=== PATIENT | male | born 1955 | race Caucasian/White ===

== ENCOUNTER → 2019-01-15 | Outpatient (CLI) | payer MEDICARE ==
--- NOTE | 2019-01-15 15:41 | REP ---
CT of the sinuses without contrast Indication: Chronic pansinusitis. Comparison: None available at the time of dictation. Technique: Axial CT of the maxillofacial bones were performed without contrast. Axial and coronal bone reformatted images were provided. Findings: Frontal sinuses: There is partial opacification of both frontal sinuses. Ethmoid air cells: There is opacification of the frontal ethmoid recesses. There is complete opacification of the posterior and anterior ethmoid air cell on the right. There is near-complete opacification of the anterior air cells on the left. There is complete opacification of the posterior ethmoid air cells on the left. Sphenoid sinuses: There is complete opacification of the right sphenoid sinus with severe thinning of the wall between the sphenoid sinus and posterior ethmoid air cells. The left sphenoid sinus is clear. The sphenoid sinus septum inserts on the left. Maxillary sinuses: Appearance of prior antrostomies. There is moderate mucosal thickening of the maxillary sinuses, greater on the right. There are incomplete septae within the maxillary sinuses inferiorly. The ostiomeatal units are occluded. There are chronic fracture deformities involving the lateral wall of the left orbit, lateral wall of the left maxillary sinus, anterior wall of the left maxillary sinus and left orbital floor. Nasal passages and septum: The nasal septum is midline. The middle turbinates are not well seen. There is polypoid mucosal thickening within the right nasal passage. Mastoid air cells: Clear bilaterally. Other: The cribriform plate and fovea ethmoidalis are intact. The imaged portion of the brain parenchyma is unremarkable. Note is made of intracranial vascular calcification. Impression: Appearance of prior antrostomies and question prior turbinectomies. Polypoid mucosal thickening of the right nasal passage. Mucosal thickening of the paranasal sinuses as described. Chronic fracture deformities involving the lateral wall of the left orbit, lateral and anterior rao of the left maxillary sinus and left orbital floor. If prior studies become available, addendum can be made for comparison. Electronically Signed by Aurea Shine MD 01/15/2019 03:32 P
== END ==
LOC: M RAD 14:41
PROVIDERS: ATTEND Otolaryngology
DX: J32.9 Chronic sinusitis, unspecified (principal)

== ENCOUNTER → 2019-02-19 | Outpatient (CLI) | payer MEDICARE ==
[~2019-02-19] MED LIST: FLON1SPR; INSUHUMDS SC; METF10004 PO; MULTTAB61 PO; TOUJ1.2I SC
[2019-02-19 19:03] LABS: BLOOD UREA NITROGEN 19 MG/DL (7-18); CALCIUM LEVEL 8.8 MG/DL (8.8-10.2); CARBON DIOXIDE LEVEL 32 MEQ/L (21-32); CHLORIDE LEVEL 104 MEQ/L (98-107); CREATININE FOR GFR 0.94 MG/DL (0.70-1.30); GLOMERULAR FILTRATION RATE > 60.0 (>49); GLUCOSE, FASTING 104 MG/DL (70-100); POTASSIUM SERUM 4.2 MEQ/L (3.5-5.1); SODIUM LEVEL 138 MEQ/L (136-145)
--- NOTE | 2019-02-20 06:35 | ECGEPIP ---
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
== END ==
LOC: M LAB 18:11
PROVIDERS: ATTEND Anesthesiology
DX: E10.9 Type 1 diabetes mellitus without complications (principal)

== ENCOUNTER 2019-02-24 10:19 | Day surgery (SDC) | payer MEDICARE ==
[~2019-02-24] VITALS: Ht 175.3 cm; Wt 72.6 kg
[~2019-02-24 10:19] MED LIST changes: +ACETAMINOPHEN 500 MG TAB As Ordered ONE; +LIDOCAINE 1% MDV 20ML VIAL SQ PRN; -MULTTAB61 PO
[2019-02-24] MEDS ORDERED: MULTTAB61 PO (10:51)
[2019-02-24] MEDS ORDERED: LR 1,000 ML IV ONE (11:45)
[2019-02-24] MEDS ORDERED: LIDOCAINE W/EPINEPHRINE 1% 20ML VIAL As Ordered ONE (12:48)
[2019-02-24] MEDS ORDERED: EPINEPHrine 1MG/ML INJ 30ML MD-VIAL As Ordered ONE (12:48)
[2019-02-24] MEDS ORDERED: METHYLENE BLUE 0.5% (5MG/ML) 10 ML AMP (PROVAYBLUE)(Q9968 PER 1MG) As Ordered ONE (12:48)
[2019-02-24] MEDS ORDERED: PROPOFOL 200 MG/20 ML VIAL As Ordered ONE (13:44)
[2019-02-24] MEDS ORDERED: ONDANSETRON 4MG/2ML VIAL (J2405) As Ordered ONE (13:44)
[2019-02-24] MEDS ORDERED: LIDOCAINE 2% INJ 100 MG/5 ML SDV (FOR ANES.) As Ordered ONE (13:44)
[2019-02-24] MEDS ORDERED: ROCURONIUM BROMIDE 50 MG/5 ML VIAL As Ordered ONE (13:44)
[2019-02-24] MEDS ORDERED: fentaNYL 250 MCG/5 ML INJECTION (J3010) As Ordered ONE (13:44)
[2019-02-24] MEDS ORDERED: MIDAZOLAM INJ 2 MG/2 ML VIAL (J2250) As Ordered ONE (13:44)
[2019-02-24] MEDS ORDERED: dexameTHASONE 4 MG/ML 1ML VIAL (J1100) As Ordered ONE (13:44)
[2019-02-24] MEDS ORDERED: SUGAMMADEX SODIUM 500 MG/5 ML VIAL (BRIDION) As Ordered ONE (13:58)
[2019-02-24] MEDS ORDERED: ESMOLOL INJ 100MG/10ML VIAL As Ordered ONE (14:01)
[2019-02-24] MEDS ORDERED: ACETAMINOPHEN 1000MG 100ML IV BTL (OFIRMEV) (J0131 PER 10MG) As Ordered ONE (14:28)
[2019-02-24] MEDS ORDERED: PERCOCET 5MG/325MG TAB As Ordered ONE (15:36)
[2019-02-24] MEDS ORDERED: PERCOCET 5MG/325MG TAB PO PRN (15:45)
[2019-02-24] MEDS ORDERED: ONDANSETRON 4MG/2ML VIAL (J2405) IV PRN (15:45)
[2019-02-24] MEDS ORDERED: LR 1,000 ML IV SCH ×2 (15:45→16:00)
[2019-02-24] MEDS ORDERED: fentaNYL 100 MCG/2 ML INJECTION (J3010) IV PRN (15:45)
[2019-02-24] MEDS ORDERED: LABETALOL HCL 100 MG/20 ML VIAL As Ordered ONE (15:46)
[2019-02-24] MEDS ORDERED: hydrALAZINE INJ 20 MG/ML VIAL As Ordered ONE (15:57)
[2019-02-24] MEDS ORDERED: ACETAMINOPH W/CODEINE #3 TAB UD PO PRN (16:00)
[2019-02-24] MEDS: hydrALAZINE INJ 20 MG/ML VIAL IV SCH ×2 (16:00→16:05)
[2019-02-24] MEDS ORDERED: LABETALOL HCL 100 MG/20 ML VIAL IV SCH (16:00)
[2019-02-24 16:05] VITALS: BP 189/76
[2019-02-24 18:25] VITALS: BP 166/75
--- NOTE | 2019-02-25 06:38 | RO ---
DATE OF PROCEDURE: 02/24/2019 PREOPERATIVE DIAGNOSIS: Chronic rhinosinusitis with polyposis. POSTOPERATIVE DIAGNOSIS: Chronic rhinosinusitis with polyposis. OPERATIVE PROCEDURE: Bilateral antrostomies, turbinectomies, polypectomies, ethmoidectomies. Nasal frontal sinusotomy. Right sphenoidotomy. SURGEON: Dr. Juni Pritchard MANUFACTURING EXECUTIVE: ANESTHESIA: FINDINGS: There was pus within the sphenoid sinus on the right side. There were polyps within most of the areas of the nose. DESCRIPTION OF PROCEDURE: Under general anesthesia with the patient intubated, the patient was prepped and draped in the usual manner. I used pledgets of adrenaline 1:1000 and infiltrated with lidocaine and epinephrine. I started on the right side. I removed polyps from inside of the nose. I opened up the osteomeatal complex area. I then went from anterior to posterior in the ethmoid air cells. I used the navigation system during the procedure. I identified the natural sinus ostium after removing the uncinate process and enlarged the opening into the maxillary sinus. There was polypoid tissue within the right maxillary sinus. I then opened up the ethmoid sinuses completely. I opened the nasal frontal area on that right side. I then opened and drained the right sphenoid sinus. Attention was directed towards the left side. The same procedure was performed except for the sphenoidotomy. The patient tolerated the procedure well. 50 mL estimated blood loss. I put Propel implants in the osteomeatal complex area. Once this was done, then the patient was extubated and transferred to the recovery room in excellent condition.
--- NOTE | 2019-02-25 06:39 | RO ---
DATE OF PROCEDURE: 02/24/2019 PREOPERATIVE DIAGNOSIS: Chronic rhinosinusitis. POSTOPERATIVE DIAGNOSIS: Chronic rhinosinusitis. OPERATIVE PROCEDURE: Bilateral polypectomy, turbinectomy, antrostomies, ethmoidectomies, nasofrontal sinusotomy, right sphenoidotomy. FINDINGS: There was polypoid tissue within the nose on both sides with obstruction. SURGEON: Juni Pritchard MD PIPE ASSEMBLY WORKER: ANESTHESIA: Under general anesthesia, with the patient intubated, the patient was draped in the usual manner. I did use the navigation system during the procedure. I used pledgets of adrenaline 1:1000 and infiltrated with lidocaine with epinephrine. CUT OFF
== END 2019-02-24 18:31 | disposition home or self-care (01) ==
LOC: M SDC 10:19
PROVIDERS: ATTEND Otolaryngology
DX: J32.9 Chronic sinusitis, unspecified (principal); J33.9 Nasal polyp, unspecified; E10.9 Type 1 diabetes mellitus without complications; Z88.6 Allergy status to analgesic agent; Z79.899 Other long term (current) drug therapy; Z79.4 Long term (current) use of insulin
CPT/HCPCS: 30130; 31255; 31257; 31267; 88305; C2625; J0131; J1100; J2250; J2405; J3010; Q9968